=== PATIENT | female | born 1955 | race Caucasian/White ===

== ENCOUNTER 2017-02-20 21:50 | Emergency (ER) | payer BC ==
[~2017-02-20] VITALS: Ht 162.6 cm; Wt 73.8 kg
[2017-02-20 21:56] VITALS: TEMP 36.5; Ht 162.6 cm; Wt 73.8 kg
[2017-02-20 22:21] VITALS: O2SAT 96
[2017-02-20 22:29] LABS: HEMATOCRIT 38.1 % (37-47); MEAN CELL VOLUME 82.8 fL (80-100); MEAN CORPUSCULAR HEMOGLOBIN 26.5 pg (25-34); MEAN PLATELET VOLUME 9.9 fL (7.4-10.4); PLATELET COUNT 264 K/uL (130-400)
[2017-02-20 22:42] LABS: BUN/CREATININE RATIO 22.1 (10-20); CREATININE 1.1 mg/dl (0.60-1.20); POTASSIUM 3.6 mmol/L (3.5-5.1)
[2017-02-20 22:46] LABS: CALCIUM 8.6 mg/dl (8.5-10.1)
[2017-02-20 22:47] LABS: ALB/GLOB RATIO 0.9 (0.9-2); CKMB/CK RATIO 1.2 (0-3.0)
[2017-02-20 22:49] LABS: PROTHROMBIN TIME (PATIENT) 10.6 SECONDS (9.0-12.0)
[2017-02-20] MEDS ORDERED: IBUP-1050 PO (22:56)
[2017-02-20] MEDS ORDERED: ASPI81TA28 PO (22:56)
[2017-02-20] MEDS ORDERED: CHOL100027 PO (22:56)
--- NOTE | 2017-02-20 23:22 | EMERGENCY ROOM VISIT NOTE ---
History Report prepared by [place]: Malia Lorenz Under the Supervision of: Dr. Mari Cruz D.O. First contact with patient: 22:57 Chief Complaint: CHEST PAIN Stated Complaint: CHEST PAIN Nursing Triage Summary: Patient states "For the last couple of weeks, I have noticed a racing heart on and off throughout the day. I haven't been sleeping well and I have had a lot of stress. I have noticed that I have a pain that comes and goes that is in the center of my chest. It feels like a stabbing tingling. I am sometimes faintly dizzy. I aki feel like this is anxiety but with my age and all of my googling , I have been worried about a heart condition." History of Present Illness The patient is a 61 year old female who presents to the Emergency Room with complaints of intermittent substernal chest pain that began four days ago. She currently rates her discomfort as a 4/10 in severity. The patient states that over the past several weeks she has noticed intermittent palpitations. She states that she has always attributed that to her profession. 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 She states that Friday she began developing intermittent chest pain that she describes a sharp. The patient states that Friday her symptoms worsened, but thought it was more anxiety. She states that her pain woke her from sleep Friday evening. The patient states that she consulted the emergency department Friday evening and decided to not come in. She states that her pain persisted throughout the evening, stating that it was still present when she woke in the morning. The patient states that she called her PCP's office today about her symptoms. She states that her pain radiates throughout. The patient states that her pain lasts 30 seconds to one minute. She denies any family history of heart disease, but notes a family history of hypertension. The patient states that she has had increased stress over the last several months, due to a recent dental procedure. She denies any leg cramping or shortness of breath. The patient states that she has a history of anxiety in her late 20s, but denies ever being on any medications for anxiety. She denies any tobacco use. Source of History: patient Onset: four days ago Position: chest Symptom Intensity: 4/10 Quality: sharp Timing: intermittent Associated Symptoms: No SOB Note: Associated Symptoms: palpitations Review of Systems See HPI for pertinent positives & negatives. A total of 10 systems reviewed and were otherwise negative. Past Medical & Surgical Surgical Problems: (1) History of right salpingo-oophorectomy (2) Hx of rhinoplasty Family History Cancer Hypertension Social History Smoking Status: Never Smoker Smokeless Tobacco Use: No Alcohol Use: none Marital Status: Housing Status: lives with significant other Occupation Status: employed Current/Historical Medications Scheduled Aspirin (Aspirin Ec), 81 MG PO DAILY Cholecalciferol (Vitamin D 1000 Unit), 2,000 INTER.UNIT PO TODAY Ibuprofen (Advil), 200-400 MG PO PRN UD Allergies Coded Allergies: Chlorpheniramine (Verified Allergy, Unknown, HYPERACTIVE, 02/20/17) [place] [facility] [place] (Verified Adverse Reaction, Unknown, TACHYCARDIA, 02/20/17) [place] [facility] [place] Exam Vital Signs Date Time Temp Pulse Resp B/P Pulse Ox O2 Delivery O2 Flow Rate FiO2 02/20/17 23:40 75 18 142/75 96 02/20/17 22:21 96 Room Air 02/20/17 22:04 80 02/20/17 21:56 36.5 80 18 136/75 98 Room Air 02/20/17 21:56 98 Room Air Physical Exam HEENT: Head - normocephalic and atraumatic Pupils are equal, round, and reactive to light. Extraocular eye muscles are intact, and sclera are anicteric. Nose - moist nasal mucosa without discharge. Mouth - moist buccal mucosa. Oropharynx is nonerythematous and there is no tonsillar exudate or edema noted. Neck: Supple; no JVD, nuchal rigidity, cervical lymphadenopathy. Heart: Regular rate and rhythm. There is a normal S1 and S2 with no murmurs, clicks, or gallops appreciated. Lungs: Clear to auscultation bilaterally with no wheezes, rales, or rhonchi. Abdomen: Soft, completely nontender, nondistended, with good bowel sounds. There are no palpable pulsatile masses or hepatosplenomegaly. There is no guarding, rigidity, or rebound noted. Extremities: No evidence of cyanosis, clubbing, or edema. There are easily palpable peripheral pulses. Skin: warm and dry with good turgor and no rashes. Medical Decision & Procedures ER Provider Diagnostic Interpretation: 1 view chest x-ray interpreted by me: normal mediastinum, no cardiomegaly, no pulmonary findings. Laboratory Results 02/20/17 22:10 02/20/17 22:10 Test 02/20/17 22:10 02/20/17 22:30 Red Blood Count 4.60 M/uL (4.2-5.4) Mean Corpuscular Volume 82.8 fL (80-100) Mean Corpuscular Hemoglobin 26.5 pg (25-34) Mean Corpuscular Hemoglobin Concent 32.0 g/dl (32-36) RDW Standard Deviation 44.5 fL (36.4-46.3) RDW Coefficient of Variation 14.5 % (11.5-14.5) Mean Platelet Volume 9.9 fL (7.4-10.4) Prothrombin Time 10.6 SECONDS (9.0-12.0) Prothromb Time International Ratio 1.0 (0.9-1.1) Activated Partial Thromboplast Time 26.0 SECONDS (21.0-31.0) Partial Thromboplastin Ratio 1.0 Anion Gap 6.0 mmol/L (3-11) Est Creatinine Clear Calc Drug Dose 52.2 ml/min Estimated GFR () 62.3 Estimated GFR (Non- 53.8 BUN/Creatinine Ratio 22.1 (10-20) Calcium Level 8.6 mg/dl (8.5-10.1) Total Bilirubin 0.1 mg/dl (0.2-1) Aspartate Amino Transf (AST/SGOT) 19 U/L (15-37) Alanine Aminotransferase (ALT/SGPT) 32 U/L (12-78) Alkaline Phosphatase 64 U/L (45-117) Total Creatine Kinase 99 U/L (26-192) Creatine Kinase MB 1.2 ng/ml (0.5-3.6) Creatine Kinase MB Ratio 1.2 (0-3.0) Total Protein 7.2 gm/dl (6.4-8.2) Albumin 3.5 gm/dl (3.4-5.0) Globulin 3.7 gm/dl (2.5-4.0) Albumin/Globulin Ratio 0.9 (0.9-2) Bedside Troponin I 0.000 ng/ml (0-0.045) Laboratory results per my review. ECG Indication: chest pain Rate (beats per minute): 78 Rhythm: normal sinus Findings: no acute ischemic change, no ectopy ED Course 2303: Past medical records reviewed. The patient was evaluated in room C3. Nursing staff had performed a protocol. A complete history and physical exam was performed. I reviewed the laboratory studies and x-ray findings with the patient. I discussed all the exam findings with her and I discussed the treatment plan. She verbalized complete understanding and agreement. She is ready to go home. Medical Decision The patient is a 61 year old female who presents to the ED with substernal chest pain. Differential diagnosis includes anxiety, acute coronary syndrome, STEMI, GERD, costochondritis, aortic dissection, PE. Lab interpretation: normal white count, stable H&H, troponin of 0, CK and CKMB are normal, normal renal function, normal LFTs, normal CoAgs. The patient has been having intermittent discomfort in the chest over the past 4 days. She states that the pain will last for approximately 30 seconds and then subside. If she is dizzy, she may not even notice the pain. She believes this is secondary to some anxiety but wanted to make sure. The patient has negative cardiac enzymes and a normal-appearing EKG despite having intermittent chest discomfort for the past 3-4 days. She has very little risk factors for heart disease. The patient does relay a history of having some discomfort in her chest 3 nights ago that was present when she went to sleep and then also present when she woke up. I recommended that she follow up with her PCP for outpatient cardiac stress testing. She was told to return here to the emergency department if symptoms worsened. Impression Primary Impression: Intermittent chest pain Scribe Attestation The scribe's documentation has been prepared under my direction and personally reviewed by me in its entirety. I confirm that the note above accurately reflects all work, treatment, procedures, and medical decision making performed by me. Departure Information Dispostion Discharge/Transfer to [facility] Referrals Indu Juárez PA-C (PCP) Forms HOME CARE DOCUMENTATION FORM, IMPORTANT VISIT INFORMATION Patient Instructions Anxiety Body Response, ED Chest Pain Atypical Unkn Cause, My [facility] Additional Instructions Rest. Limit stress and anxiety Follow up with Indu for cardiac stress testing. Return to the ER for any worsening pain or if you have any associated nausea, shortness of breath, or sweating
[2017-02-20 23:40] VITALS: BP 142/75; PULSE 75; O2SAT 96
--- NOTE | 2017-02-21 07:14 | DIAGNOSTIC IMAGING REPORT ---
SINGLE VIEW CHEST CLINICAL HISTORY: Atypical chest pain. FINDINGS: An AP, portable, upright chest radiograph is obtained. No prior studies are available for comparison at the time of dictation. The examination is degraded by portable technique and patient rotation. The cardiomediastinal silhouette is unremarkable. The lungs and pleural spaces are clear. No pneumothorax is seen. The bony thorax is grossly intact. IMPRESSION: No active disease in the chest. Electronically signed by: Arron Devi M.D. 02/21/2017 7:13 AM Dictated Date/Time: 02/21/2017 7:12 AM
== END 2017-02-20 23:42 | disposition home or self-care (01) ==
LOC: C.EDB 21:51 → C.EDC 23:42
DX: R07.9 Chest pain, unspecified (principal); Z80.9 Family history of malignant neoplasm, unspecified; Z82.49 Family history of ischemic heart disease and other diseases of the circulatory system; F43.9 Reaction to severe stress, unspecified; Z90.721 Acquired absence of ovaries, unilateral; Z90.79 Acquired absence of other genital organ(s); Z79.82 Long term (current) use of aspirin; Z79.899 Other long term (current) drug therapy